=== PATIENT | male | born 1945 | race African-American/Black ===

== ENCOUNTER 2016-10-17 13:10 | Emergency (ER) | payer OTHER, MEDICARE ==
--- NOTE | ~2016-10-17 | CR93 ---
[facility]. [facility] A Service of [facility] & [facility] RADIOLOGY TEXT RESULTS PATIENT: MAURY PADGETT LOCATION: SED : 41 UNIT #: [id number] AGE: [address]: Zakiya العلي SEX: M ORDER DR: [id number] [place] [id number] MR#: [id number] Acc #: [id number] NAME: MAURY PADGETT : 1945 SEX: M STUDY DATE/TIME: 10/17/2016 13:31 UNIT: SED ROOM: STUDY DESCRIPTION: CR Elbow Min 3 Views Lt Attending Physician: Zakiya العلي Pa-C Ordering Physician: Zakiya العلي Pa-C MEDICAL IMAGING REPORT This report is preliminary unless electronic signature is present. EXAM Left elbow series INDICATIONS Left elbow pain and swelling for the past 4 days. TECHNIQUE 3 views of the left elbow. FINDINGS No fracture or dislocation. There is generalized elbow swelling. IMPRESSION Generalized soft tissue swelling. No acute bony abnormality. Dictated by... Mario Monte M.D. THIS IS AN ELECTRONICALLY VERIFIED REPORT Mario Monte M.D. at 10/18/2016 9:43 AM EED/pcl TD: 10/17/2016 15:22 JOB #: [id number] MEDICAL IMAGING REPORT Page 1 of 1
[~2016-10-17 13:10] MED LIST: BP MED; LASIX PO
== END 2016-10-17 14:28 | disposition home or self-care (01) ==
LOC: SED 13:10
DX: L03.114 Cellulitis of left upper limb (principal); I10 Essential (primary) hypertension; Z79.899 Other long term (current) drug therapy
CPT/HCPCS: 73080; 99283